=== PATIENT | female | born 1975 | race Caucasian/White ===

== ENCOUNTER 2019-06-29 15:20 | Emergency (ER) | payer OTHER ==
[~2019-06-29] VITALS: Ht 170.2 cm; Wt 78.9 kg
[2019-06-29 15:55] VITALS: BP 120/76
[2019-06-29] MEDS ORDERED: IBUPROFEN 600600 M1 PO (17:19)
[2019-06-29] MEDS ORDERED: NORFLEX100 MG PO (17:19)
[2019-06-29] MEDS ORDERED: SENNA-DOCUSATE1 EAC1 PO (17:19)
[2019-06-29] MEDS ORDERED: NORCO 5-325 TA1 EAC1 PO (17:19)
== END 2019-06-29 17:28 | disposition home or self-care (01) ==
LOC: ER 15:20
DX: S09.8XXA Other specified injuries of head, initial encounter (principal); M25.512 Pain in left shoulder; V43.52XA Car driver injured in collision with other type car in traffic accident, initial encounter; Y93.89 Activity, other specified; Y92.89 Other specified places as the place of occurrence of the external cause; Y99.8 Other external cause status